=== PATIENT | female | born 1950 | race Caucasian/White ===

== ENCOUNTER 2023-11-03 02:37 | Emergency (ER) | payer OTHER ==
[~2023-11-03] VITALS: Ht 152.4 cm; Wt 59.0 kg
[2023-11-03 02:45] VITALS: BP_SYST 144; PULSE 96; RESP 18; TEMP 98.4; O2SAT 96
[2023-11-03 03:36] VITALS: BP_SYST 144; PULSE 96; RESP 18; TEMP 98.4; O2SAT 96
== END 2023-11-03 03:35 | disposition home or self-care (01) ==
LOC: SED 02:37
DX: K94.03 Colostomy malfunction (principal); Z88.6 Allergy status to analgesic agent; Z85.038 Personal history of other malignant neoplasm of large intestine
CPT/HCPCS: 99281